=== PATIENT | male | born 1955 | race Caucasian/White ===

== ENCOUNTER 2016-02-25 19:06 | Emergency (ER) | payer BC ==
--- NOTE | 2016-02-25 20:08 | ED ---
General Adult HPI - General Chief complaint: ENT Stated complaint: nose bleed Time Seen by Provider: 02/25/16 19:35 Source: patient, family, RN notes reviewed Mode of arrival: ambulatory Limitations: no limitations - History of Present Illness Initial comments: Patient is a pleasant 60-year-old male presenting to the emergency Department with epistaxis. Symptoms started an hour and a half prior to arrival. Symptoms have been mostly steady. No history of chronic nosebleeds. Patient is on Brilinta after previous cardiac stent back in November. Patient did vomit after nosebleed started mixed with some blood. - Related Data Home Medications Medication Instructions Recorded Confirmed metFORMIN HCL 1,000 mg PO BID 10/31/13 02/25/16 Levothyroxine Sodium [Synthroid] 75 mcg PO DAILY 03/05/14 02/25/16 amLODIPine [Norvasc] 10 mg PO DAILY 03/05/14 02/25/16 Atenolol 100 mg PO DAILY 12/16/14 02/25/16 Insulin Detemir [Levemir Flextouch] 70 units SQ DAILY 02/25/16 02/25/16 Lisinopril [Zestril] 10 mg PO DAILY 02/25/16 02/25/16 Previous Rx's Medication Instructions Recorded Aspirin 81 mg PO DAILY #30 chew 01/05/16 Atorvastatin [Lipitor] 80 mg PO HS #30 tab 01/05/16 Nitroglycerin Sl Tabs [Nitrostat] 0.4 mg SUBLINGUAL Q5M PRN #25 tab 01/05/16 Ticagrelor [Brilinta] 90 mg PO BID #60 tab 01/05/16 Allergies Allergy/AdvReac Type Severity Reaction Status Date / Time cephalexin monohydrate Allergy Rash/Hives Verified 02/25/16 19:34 [From [facility]] Review of Systems ROS Statement: Those systems with pertinent positive or pertinent negative responses have been documented in the HPI. ROS Other: All systems not noted in ROS Statement are negative. Constitutional: Denies: fever Eyes: Denies: eye pain ENT: Reports: epistaxis. 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 Last Myocardial Infarction Date:: 2009 History of Any Multi-Drug Resistant Organisms: None Reported Past Surgical History: Heart Catheterization With Stent, Joint Replacement Additional Past Surgical History / Comment(s): TOTAL LT KNEE REPLACE,HEART STENTS X2, CA TUMOR REMOVED LFT KIDNEY 2000, COLONOSCOPY-NEG, bilateral bunionectomy Past Anesthesia/Blood Transfusion Reactions: No Reported Reaction Date of Last Stent Placement:: 2009 Past Psychological History: No Psychological Hx Reported Smoking Status: Never smoker Past Alcohol Use History: None Reported Additional Past Alcohol Use History / Comment(s): Patient is a lifelong non- smoker. He denies any alcohol abuse. He is currently . He has 3 children that are healthy. Past Drug Use History: None Reported - Past Family History Father Family Medical History: Cancer Additional Family Medical History / Comment(s): OF STOMACH CANCER AGE 85 Mother Additional Family Medical History / Comment(s): AGE 85 FROM CEREBRAL HEMORRAGE Sister(s) Family Medical History: Cancer Additional Family Medical History / Comment(s): He has one half brother that of some type of cancer. General Exam Limitations: no limitations General appearance: alert, in no apparent distress Head exam: Present: atraumatic Eye exam: Present: normal appearance, PERRL ENT exam: Present: normal oropharynx, other (Right nares with active bleeding) Neck exam: Present: normal inspection Respiratory exam: Present: normal lung sounds bilaterally Cardiovascular Exam: Present: regular rate, normal rhythm GI/Abdominal exam: Present: soft. Absent: tenderness Extremities exam: Present: normal inspection Neurological exam: Present: alert Psychiatric exam: Present: normal affect, normal mood Skin exam: Absent: rash Course Vital Signs 02/25/16 19:20 Temperature 97.7 F Pulse Rate 67 Respiratory 20 Rate Blood Pressure 175/86 O2 Sat by Pulse 95 Oximetry Procedures - Procedures Initial comment: Epistaxis: Active bleeding on the right nares. Bleeding controlled with Afrin and silver nitrate. Disposition Clinical Impression: Epistaxis Disposition: HOME SELF-CARE Condition: Stable Instructions: Nosebleed (ED) Additional Instructions: Please follow-up with your primary care physician in the next couple of days for recheck. Hold brilinta for the next 5 days. Return for increased bleeding , weakness, shortness of breath, vomiting, vomiting blood, worsening symptoms or other concerns. Referrals: Tanner Aguiar MD [Primary Care Provider] - 1-2 days
[2016-02-25] MEDS ORDERED: OXYMETAZOLINE 0.05% NASL SPRAY 15 ML NASAL STA (20:11)
[2016-02-25 20:35] VITALS: BP 156/68; PULSE 68; RESP 18; TEMP 97.2
== END 2016-02-25 20:38 | disposition home or self-care (01) ==
LOC: EC 19:06
DX: R04.0 Epistaxis (principal); E11.9 Type 2 diabetes mellitus without complications; I10 Essential (primary) hypertension; E07.9 Disorder of thyroid, unspecified; Z79.899 Other long term (current) drug therapy; Z79.4 Long term (current) use of insulin; Z88.1 Allergy status to other antibiotic agents; I25.2 Old myocardial infarction; Z85.528 Personal history of other malignant neoplasm of kidney; Z95.5 Presence of coronary angioplasty implant and graft
CPT/HCPCS: 30901; 99283

== ENCOUNTER → 2019-09-26 | Outpatient (CLI) | payer MEDICARE ==
--- NOTE | 2019-09-26 15:05 | CT ---
EXAMINATION TYPE: CT sinus wo con DATE OF EXAM: 09/26/2019 COMPARISON: NONE HISTORY: Chronic sinusitis per order. Facial pain and congestion per patient. CT DLP: 636.4 mGycm. Automated Exposure Control for Dose Reduction was Utilized. TECHNIQUE: CT scan of the sinuses is performed without contrast, axial images are obtained, coronal r eformatted images are also reviewed. FINDINGS: Left maxillary sinus is completely opacified with central hyperdense or calcific material e xpanding into the middle turbinates. There is asymmetric cortical thickening of the anterior and post erolateral da silva of the left maxillary sinus along with medial bowing suggesting chronic nonaggressiv e etiology. Mild to moderate mucosal thickening of the left-sided ethmoid sinuses is present. Remain kareem paranasal sinuses are clear. The ostiomeatal complex is patent on the right on coronal image 19. Visualized portion of mastoid air cells show no abnormal opacification. The globes are intact bilate rally. IMPRESSION: Suspected chronic fungal sinusitis left maxillary sinus as detailed above. Correlate cli nically.
== END | disposition home or self-care (01) ==
LOC: RADCTMAIN 14:41
PROVIDERS: ATTEND Otolaryngology
DX: J32.9 Chronic sinusitis, unspecified (principal)
CPT/HCPCS: 70486